=== PATIENT | female | born 1985 | race Two or more races ===

== ENCOUNTER → 2025-03-25 | Outpatient (CLI) | payer MEDICAID, SELFPAY ==
[2025-03-18 16:57] LABS: HCG Qualitative,Urine Negative
[2025-03-25 13:34] LABS: HCG Qualitative,Urine Negative
--- NOTE | 2025-03-25 14:30 | XR_ITS ---
Examination: CT abdomen and pelvis without contrast. Coronal 3-D reconstructions. Sagittal 2-D reconstructions. Date and time of exam:March 25, 2025 1427 hours INDICATIONS: Right upper abdominal pain beginning one month ago CTDI: vol (mGy): 10.1 DLP: (mGycm): 553 Technique: Axial images of the abdomen have been obtained, 3 mm slice thickness Intravenous contrast material has not been administered. Low dose protocols were performed. One or more of the following dose reduction techniques were used; automated exposure control, adjustment of the mA and/or KV according to patient size, use of iterative reconstruction technique. Findings: No focal liver or splenic lesions Absent gallbladder No pancreatic or adrenal mass No renal or ureteral calculi, no hydronephrosis Aorta normal size No bowel obstruction 6 mm fat-containing umbilical hernia Normal appendix No diverticulitis Anteverted uterus No adnexal mass Advanced disc narrowing L4-L5, L5-S1 IMPRESSION: No renal or ureteral calculi, no hydronephrosis No bladder mass or bladder calculi Normal appendix
== END | disposition home or self-care (01) ==
PROVIDERS: PCP Nurse Practitioner Family; Referring Provider Surgery; Visit Provider Surgery
DX: N13.30 Unspecified hydronephrosis (principal); Z32.00 Encounter for pregnancy test, result unknown
CPT/HCPCS: 74176; 81025